=== PATIENT | male | born 1995 | race Hispanic/Latino ===

== ENCOUNTER 2017-06-29 10:36 | Emergency (ER) | payer SELFPAY ==
[~2017-06-29] VITALS: Ht 167.6 cm; Wt 80.0 kg
[2017-06-29 11:23] LABS: HEMATOCRIT 42.5 % (39.0-50.0); HEMOGLOBIN 15.1 g/dl (14.0-18.0); IMMATURE GRANULOCYTES 0.5 % (0.0-1.0); MEAN CELL VOLUME 90.6 fL CALC (80.0-100.0); MEAN CORPUSCULAR HGB 32.2 pG CALC (26.0-32.0); MEAN CORPUSCULAR HGB CONC 35.5 g/L CALC (32.0-36.0); NEUT# 6.62 thou/uL (1.82-7.42); RED BLOOD COUNT 4.69 mill/uL (4.70-6.10); RED CELL DISTRI WIDTH 12.5 % (11.5-15.5)
[2017-06-29 11:24] LABS: URINE BILIRUBIN - DIPSTICK NEGATIVE (NEGATIVE); URINE BLOOD DIPSTICK NEGATIVE (NEGATIVE); URINE COLOR YELLOW; URINE GLUCOSE - DIPSTICK NEGATIVE (NEGATIVE); URINE KETONE NEGATIVE (NEGATIVE); URINE LEUK ESTERASE NEGATIVE (NEGATIVE); URINE NITRITE - DIPSTICK NEGATIVE (Negative); URINE PROTEIN - DIPSTICK NEGATIVE (NEG-TRACE); URINE SPECIFIC GRAVITY <=1.005; URINE UROBILINOGEN - DIPSTICK 0.2 E.U./dL (0.2)
[2017-06-29 11:27] LABS: ALBUMIN 4.6 g/dL (3.2-5.0); ALKALINE PHOSPHATASE 91 u/l (38-126); ANION GAP 15 (6-22 (CALC)); BILIRUBIN, TOTAL 1.5 mg/dL (0.0-1.4); BUN 11 mg/dL (9-20); BUN/CREATININE RATIO 16 (12-20 (CALC)); CARBON DIOXIDE 26 mmol/l (22-30); CHLORIDE 107 mmol/l (95-108); CREATININE 0.7 mg/dL (0.7-1.3); GFR > 60 ML/MIN (>=60 (CALC)); GFR FOR AFR.AMER. > 60 ML/MIN (>=60 (CALC)); POTASSIUM 4.4 mmol/l (3.5-5.1); SGOT/AST 86 u/l (17-59); SGPT/ALT 147 u/l (21-72); SODIUM 144 mmol/l (137-146); TOTAL PROTEIN 7.7 g/dL (6.3-8.2)
[2017-06-29 11:29] LABS: BARBITURATES NEGATIVE (NEGATIVE); COCAINE NEGATIVE (NEGATIVE); METHADONE NEGATIVE (NEGATIVE); OXCYCODONE NEGATIVE (NEGATIVE); TETRAHYDROCANNABIONOL NEGATIVE (NEGATIVE); TRICYLIC ANTIDEPRESSANTS NEGATIVE (NEGATIVE); URINE CLARITY CLEAR
[2017-06-29] MEDS ORDERED: FIORICET PO (11:47)
[2017-06-29 12:08] VITALS: BP 124/61
== END 2017-06-29 12:32 | disposition home or self-care (01) | DRG 103 ==
LOC: ED 10:36
PROVIDERS: Emergency Medicine
DX: R51 Headache (principal); R04.0 Epistaxis; R11.10 Vomiting, unspecified

== ENCOUNTER 2017-07-04 11:00 | Emergency (ER) | payer SELFPAY ==
[~2017-07-04] VITALS: Ht 167.6 cm; Wt 64.8 kg
[~2017-07-04 11:00] MED LIST: FIORICET PO
[2017-07-04] MEDS ORDERED: INDERAL 40MG TA40 MG PO (12:16)
[2017-07-04] MEDS ORDERED: FIORICET PO (12:16)
[2017-07-04 12:46] VITALS: BP 118/80
== END 2017-07-04 13:00 | disposition home or self-care (01) | DRG 103 ==
LOC: ED 11:00
DX: R51 Headache (principal); R11.10 Vomiting, unspecified

== ENCOUNTER 2017-07-09 14:36 | Observation (INO) | payer SELFPAY ==
[~2017-07-09] VITALS: Ht 167.6 cm; Wt 63.8 kg
[~2017-07-09 14:36] MED LIST changes: +INDERAL 40MG TA40 MG PO
--- NOTE | 2017-07-09 14:46 | NUR ---
PATIENT IN TRUCK IN PARKING LOT UNRESPONSIVE. HARD STERNAL RUB USED TO AWAKEN PATIENT. PATIENT CONFUSED AND COMPLAINING OF HEADACHE. MD AT BEDSIDE FOR EVALUATION
[2017-07-09 15:10] LABS: HEMATOCRIT 46.4 % (39.0-50.0); HEMOGLOBIN 16.6 g/dl (14.0-18.0); IMMATURE GRANULOCYTES 0.3 % (0.0-1.0); MEAN CELL VOLUME 90.4 fL CALC (80.0-100.0); MEAN CORPUSCULAR HGB 32.4 pG CALC (26.0-32.0); MEAN CORPUSCULAR HGB CONC 35.8 g/L CALC (32.0-36.0); NEUT# 4.63 thou/uL (1.82-7.42); RED BLOOD COUNT 5.13 mill/uL (4.70-6.10); RED CELL DISTRI WIDTH 12.1 % (11.5-15.5)
[2017-07-09] MEDS ORDERED: IBUPROFEN600 MG PO (15:21)
[2017-07-09 15:26] LABS: PROTHROMBIN TIME 11.2 SECONDS (9.0-12.5)
[2017-07-09 15:27] LABS: ALBUMIN 5.2 g/dL (3.2-5.0); ALKALINE PHOSPHATASE 114 u/l (38-126); ANION GAP 21 (6-22 (CALC)); BILIRUBIN, TOTAL 0.9 mg/dL (0.0-1.4); BUN 9 mg/dL (9-20); BUN/CREATININE RATIO 12 (12-20 (CALC)); CARBON DIOXIDE 26 mmol/l (22-30); CHLORIDE 103 mmol/l (95-108); CREATININE 0.8 mg/dL (0.7-1.3); GFR > 60 ML/MIN (>=60 (CALC)); GFR FOR AFR.AMER. > 60 ML/MIN (>=60 (CALC)); SGOT/AST 89 u/l (17-59); SGPT/ALT 176 u/l (21-72); SODIUM 146 mmol/l (137-146); TOTAL PROTEIN 8.9 g/dL (6.3-8.2)
--- NOTE | 2017-07-09 15:28 | NUR ---
WALKED INTO ROOM TO OBTAIN URINE, AND TEARS ARE ROLLING DOWN PTS. FACE. ASKED WHERE HE IS HURTING AT THIS TIME, AND HE POINTS TO HIS HEAD. NOTIFIED.
[2017-07-09 15:38] LABS: URINE BILIRUBIN - DIPSTICK NEGATIVE (NEGATIVE); URINE BLOOD DIPSTICK NEGATIVE (NEGATIVE); URINE COLOR YELLOW; URINE GLUCOSE - DIPSTICK NEGATIVE (NEGATIVE); URINE KETONE NEGATIVE (NEGATIVE); URINE LEUK ESTERASE NEGATIVE (NEGATIVE); URINE NITRITE - DIPSTICK NEGATIVE (Negative); URINE PROTEIN - DIPSTICK NEGATIVE (NEG-TRACE); URINE SPECIFIC GRAVITY 1.015; URINE UROBILINOGEN - DIPSTICK 0.2 E.U./dL (0.2)
[2017-07-09 15:39] LABS: URINE CLARITY CLEAR
[2017-07-09 15:40] LABS: BARBITURATES NEGATIVE (NEGATIVE); COCAINE NEGATIVE (NEGATIVE); METHADONE NEGATIVE (NEGATIVE); OXCYCODONE NEGATIVE (NEGATIVE); TETRAHYDROCANNABIONOL NEGATIVE (NEGATIVE); TRICYLIC ANTIDEPRESSANTS NEGATIVE (NEGATIVE)
--- NOTE | 2017-07-09 15:41 | NUR ---
LIGHTS TURNED OFF AND WARM BLANKET GIVEN. CALL LIGHT WITHIN EASY REACH
--- NOTE | 2017-07-09 15:55 | NUR ---
PT STATES THEY TOLD HIM TO STOP TAKING PROPANOLOL AND TAKE EXCEDRIN AND FIORCET INSTEAD. SO HE STATES HE HASNT TAKEN ANY PROPANOLOL SINCE THE , STATES WAS SEEN HERE 2 OTHER TIMES FOR HEADACHES IN LAST MONTH
--- NOTE | 2017-07-09 17:51 | NUR ---
PT STATES PAIN HAS DECREASED TO A 2, PT REMAINS ALERT/ORIENTED X3. VITAL SIGNS STABLE
--- NOTE | 2017-07-09 18:00 | NUR ---
SBAR PRINTED TO FLOOR
--- NOTE | 2017-07-09 18:11 | NUR ---
CALLED TO GIVE REPORT BUT NURSE IS NOT AVAILABLE TO ACCEPT REPORT AT THIS TIME, WILL CALL ME BACK SOON SHE CAN
[2017-07-09 18:35] VITALS: BP 131/77
--- NOTE | 2017-07-09 18:38 | NUR ---
PT TAKEN TO FLOOR PER STRETCHER AND TELEMETRY
--- NOTE | 2017-07-09 19:40 | NUR ---
PT IN SEMIFOWLERS A/O X3, RESPIRAITONS EVEN AND UNLABORED ON RA. C/O HEADACHE 02/01, ICE PACK PROVIDED AND APPLIED TO FOREHEAD. WAS MEDICATED WITH TORADOL IN ER AT 1732. ADMISSION ASSESSMENT COMPLETE, ORIENTED TO BED CONTROLS AND CALL LIGHT. PT IS [place] SPEAKING ONLY, THIS WRITTER WAS [employer]. STATES HEADACHES STARTED ABOUT 3WEEKS AGO, PIC[place] FOR A LIVING, [facility], STATES HE'S NEVER HAD HEADACHED THIS BAD BEFORE. WILL CONTINUE TO MONITOR.
--- NOTE | 2017-07-09 20:30 | NUR ---
SANDWICH PROVIDED, CHEWING AND SWALLOWING WITH NO PROBLEM
--- NOTE | 2017-07-09 21:30 | NUR ---
AFTER EATING DINNER PT DENIES HEADACHE, STATES 0/10, ENCOURAGED TO USE CALL LIGHT FOR ASSISTANCE, OOB AMBULATING TO BATHROOM WITH STEADY GAIT, DENIES DIZZINESS, VOIDING 400ML CLEAR YELLOW URINE. BACK TO BED. CALL LIGHT IN REACH.
--- NOTE | 2017-07-10 00:30 | NUR ---
RESTING WITH EYES CLOSED RESPIRATIONS EVEN AND UNLABORED. CALL LIGHT IN REACH.
[2017-07-10 03:45] VITALS: BP 115/62
--- NOTE | 2017-07-10 04:00 | NUR ---
RESTING WITH EYES CLOSED, RESPONDS EASILY TO VERBAL COMMAND, DENIES HEADACHE AT THIS TIME. A/O X3.
--- NOTE | 2017-07-10 07:00 | NUR ---
RECEIVED BEDSIDE REPORT FROM LEELEE AGUILERA. RESTING IN SUPINE POSITION WITH EYES CLOSED, AWAKENS EASILY. RESPS EVEN AND UNLABORED ON ROOM AIR, TELE MONITOR IN PLACE. DENIES PAIN OR DISCOMFORT. VOICES NO NEEDS AT THIS TIME. PLAN OF CARE DISCUSSED. SAFETY PRECAUTIONS REINFORCED. BED IN LOWEST POSITION WITH WHEELS LOCKED. CALL LIGHT WITHIN REACH. ENCOURAGED PT TO CALL FOR ANY NEEDS.
[2017-07-10 08:04] VITALS: BP 99/51
--- NOTE | 2017-07-10 12:00 | NUR ---
SITTING ON EDGE OF BED EATING LUNCH. RESPS EVEN AND UNLABORED ON ROOM AIR, TELE MONITOR IN PLACE. DENIES PAIN OR DISCOMFORT. CALL LIGHT WITHIN REACH. WILL CONTINUE TO MONITOR.
--- NOTE | 2017-07-10 16:23 | NUR ---
RESTING IN BED WITH EYES CLOSED. RESPS EVEN AND UNLABORED ON ROOM AIR, TELE MONITOR IN PLACE. DENIES PAIN OR DISCOMFORT. CALL LIGHT WITHIN REACH.
--- NOTE | 2017-07-10 16:55 | NUR ---
DR SHIRLEY IN WITH PT, NEW ORDERS RECEIVED.
--- NOTE | 2017-07-10 17:30 | NUR ---
IV site discontinued, cath intact. No edema , no redness, voices no discomfort.
--- NOTE | 2017-07-10 17:40 | NUR ---
Discharge instructions given. Patient verbalizes understanding of same. Discharged in stable condition via Wheelchair to Home with friend. All belongings sent with pt.
== END 2017-07-10 17:38 | disposition home or self-care (01) | DRG 312 ==
LOC: ED 14:36 → ED-I 17:37 → ED 17:57 → MS2 17:58
PROVIDERS: Emergency Medicine; ADMIT Internal Medicine; ATTEND Internal Medicine
DX: R55 Syncope and collapse (principal); R51 Headache
CPT/HCPCS: G0378